=== PATIENT | female | born 1945 | race Hispanic/Latino ===

== ENCOUNTER → 2018-10-29 | Outpatient (CLI) | payer MEDICARE ==
[~2018-10-29] MED LIST: AMLO10TA7 PO; ASPI-555 PO; CANA300T PO; CEPH500C2 PO; CHLO25TA3 PO; ERGO500014 PO; GLIP5TAB11 PO; ISOS30TA6 PO; LIOT5TAB8 PO; LOSA100T58 PO; MAGN400C PO; METF-446 PO; PIOG30TA70 PO; RANO500T2 PO; ROSU10TA PO; SITA100T12 PO; SOLI5 PO
== END | disposition home or self-care (01) ==
LOC: RAH 09:47
PROVIDERS: ATTEND Family Medicine
DX: M17.0 Bilateral primary osteoarthritis of knee (principal); M25.462 Effusion, left knee; M25.461 Effusion, right knee
CPT/HCPCS: 73562

== ENCOUNTER 2018-11-26 08:22 | Emergency (ER) | payer MEDICARE ==
[~2018-11-26 08:22] MED LIST changes: -ROSU10TA PO; +ROSU10TA22 PO
[2018-11-26 09:29] LABS: CREATININE 0.6 mg/dL (0.5-1.5)
[2018-11-26] MEDS ORDERED: KETOROLAC TROMETHAMINE 15MG/ML ONE ×2 (09:43→10:23)
== END 2018-11-26 11:11 | disposition home or self-care (01) ==
LOC: EDH 08:22
DX: M19.90 Unspecified osteoarthritis, unspecified site (principal); I16.0 Hypertensive urgency; I10 Essential (primary) hypertension; E78.00 Pure hypercholesterolemia, unspecified; E11.9 Type 2 diabetes mellitus without complications; M81.0 Age-related osteoporosis without current pathological fracture; Z98.51 Tubal ligation status
CPT/HCPCS: 36415; 80048; 93971; 96372; 99284; J1885

== ENCOUNTER 2019-01-05 11:56 | Emergency (ER) | payer MEDICARE ==
[2019-01-05] MEDS ORDERED: MORPHINE SULFATE 4 MG/1ML SYG ONE (12:43)
== END 2019-01-05 14:32 | disposition home or self-care (01) ==
LOC: EDH 11:56
DX: S80.02XA Contusion of left knee, initial encounter (principal); S02.2XXA Fracture of nasal bones, initial encounter for closed fracture; S06.0X9A Concussion with loss of consciousness of unspecified duration, initial encounter; S63.501A Unspecified sprain of right wrist, initial encounter; S80.01XA Contusion of right knee, initial encounter; I10 Essential (primary) hypertension; E11.9 Type 2 diabetes mellitus without complications; E78.00 Pure hypercholesterolemia, unspecified; Z98.51 Tubal ligation status; Z91.041 Radiographic dye allergy status; W18.39XA Other fall on same level, initial encounter; Y93.89 Activity, other specified; Y92.89 Other specified places as the place of occurrence of the external cause; Y99.8 Other external cause status
CPT/HCPCS: 70450; 70486; 72125; 73110; 73562 ×2; 96372; 99284; J2270

== ENCOUNTER → 2019-04-11 | Outpatient (CLI) | payer MEDICARE ==
[~2019-04-11] MED LIST changes: -LIOT5TAB8 PO; +LIOT5TAB9 PO
== END | disposition home or self-care (01) ==
LOC: RAH 08:05
PROVIDERS: ATTEND Family Medicine
DX: Z12.31 Encounter for screening mammogram for malignant neoplasm of breast (principal)
CPT/HCPCS: 77067

== ENCOUNTER 2019-05-20 15:21 | Emergency (ER) | payer MEDICARE ==
[2019-05-20] MEDS ORDERED: KETOROLAC TROMETHAMINE 30MG/ML ONE (17:24)
== END 2019-05-20 18:09 | disposition home or self-care (01) ==
LOC: EDH 15:21
DX: M17.12 Unilateral primary osteoarthritis, left knee (principal); I10 Essential (primary) hypertension; E78.00 Pure hypercholesterolemia, unspecified; E11.9 Type 2 diabetes mellitus without complications; M81.0 Age-related osteoporosis without current pathological fracture; Z91.041 Radiographic dye allergy status
CPT/HCPCS: 96372; 99283; J1885

== ENCOUNTER → 2019-11-12 | Outpatient (CLI) | payer MEDICARE ==
[~2019-11-12] MED LIST changes: +LIOT5TAB11 PO; -LIOT5TAB9 PO
== END | disposition home or self-care (01) ==
LOC: RAH 08:29
PROVIDERS: ATTEND Family Medicine
DX: I65.23 Occlusion and stenosis of bilateral carotid arteries (principal)
CPT/HCPCS: 93880

== ENCOUNTER → 2020-03-23 | Outpatient (CLI) | payer MEDICARE ==
[~2020-03-23] MED LIST changes: -ASPI-555 PO; +ASPI-556 PO
== END | disposition home or self-care (01) ==
LOC: RAH 13:36
PROVIDERS: ATTEND Urology
DX: R31.29 Other microscopic hematuria (principal)
CPT/HCPCS: 76770

== ENCOUNTER → 2022-08-24 | Outpatient (CLI) | payer MEDICARE ==
[~2022-08-24] MED LIST changes: +AMLO-258 PO; -AMLO10TA7 PO; -ISOS30TA6 PO; +ISOS30TA92 PO
== END | disposition home or self-care (01) ==
LOC: RAH 14:26
PROVIDERS: ATTEND Family Medicine
DX: K57.30 Diverticulosis of large intestine without perforation or abscess without bleeding (principal); K76.89 Other specified diseases of liver
CPT/HCPCS: 74176

== ENCOUNTER → 2024-04-23 | Outpatient (CLI) | payer MEDICARE ==
[~2024-04-23] MED LIST changes: -GLIP5TAB11 PO; +GLIP5TAB15 PO; -LOSA100T58 PO; +LOSA100T59 PO
== END | disposition home or self-care (01) ==
LOC: SHCH 13:03
PROVIDERS: ATTEND Internal Medicine Cardiovascular Disease
DX: I70.293 Other atherosclerosis of native arteries of extremities, bilateral legs (principal); I87.2 Venous insufficiency (chronic) (peripheral); I87.1 Compression of vein; I20.0 Unstable angina
CPT/HCPCS: 93306; 93925; 93970

== ENCOUNTER → 2024-04-25 | Outpatient (CLI) | payer MEDICARE ==
[2024-04-25] MEDS: REGADENOSON 0.4 MG/5 ML PF SYG IVP ONE (13:55)
== END | disposition home or self-care (01) ==
LOC: SHCH 07:54
PROVIDERS: ATTEND Internal Medicine Cardiovascular Disease
DX: I99.8 Other disorder of circulatory system (principal); I20.0 Unstable angina
CPT/HCPCS: 78452; 93017; J2785; A9500 ×2

== ENCOUNTER → 2024-08-26 | Outpatient (CLI) | payer MEDICARE ==
[~2024-08-26] MED LIST changes: -AMLO-258 PO; -CANA300T PO; +CELE-146 PO; -CEPH500C2 PO; -CHLO25TA3 PO; +CLON0.1T PO; -ERGO500014 PO; +GABA-1405 PO; -GLIP5TAB15 PO; +ICOS1CAP PO; +INSU300I SQ; -ISOS30TA92 PO; -LIOT5TAB11 PO; -LOSA100T59 PO; +METO25TA6 PO; +PIOG15TA66 PO; -PIOG30TA70 PO; +ROPI0.5T37 PO; -ROSU10TA22 PO; +ROSU20TA98 PO; +SERT-439 PO; -SITA100T12 PO; -SOLI5 PO
--- NOTE | 2024-08-26 17:16 | HMCSR ---
APPROVED REPORT Bilateral Lower Extremity Venous Study for DVT., Venous Competence. Indications i87.1, i87.2 Vein Imaging CFV (R): Normal flow, augmentation and compression. No evidence of DVT. 11.0mm 717ms of reflux. SFJ (R): Normal flow, augmentation and compression. No evidence of DVT. FEM (R): Normal flow, augmentation and compression. No evidence of DVT. POP (R): Normal flow, augmentation and compression. No evidence of DVT. DFV (R): Normal flow, augmentation and compression. No evidence of DVT. PTV (R): Normal flow, augmentation and compression. No evidence of DVT. Peroneals (R): Normal flow, augmentation and compression. No evidence of DVT. CFV (L): Normal flow, augmentation and compression. No evidence of DVT. 10.9mm 394ms of reflux. SFJ (L): Normal flow, augmentation and compression. No evidence of DVT. FEM (L): Normal flow, augmentation and compression. No evidence of DVT. POP (L): Normal flow, augmentation and compression. No evidence of DVT. DFV (L): Normal flow, augmentation and compression. No evidence of DVT. PTV (L): Normal flow, augmentation and compression. No evidence of DVT. Peroneals (L): Normal flow, augmentation and compression. No evidence of DVT. Technologist Impression Deep veins of the bilateral lower extremities appear patent and compressible without thrombus. Superficial venous insufficiency noted in the RSSV, LGSV at thigh and LSSV. RGSV junction 6.4mm 289ms thigh 3.7mm 0.0ms knee 3.5mm 0.0ms calf 2.6mm 333ms RSSV prox 1.8mm 811ms mid 1.9mm 0.0ms LGSV junciton 6.6mm 0.0ms thigh 2.9mm 894ms knee 2.6mm 0.0ms calf 2.5mm 0.0ms LSSV prox 3.1mm 583ms mid 3.0mm 1961ms Conclusion Superficial venous insufficiency noted in the RSSV, LGSV at thigh and LSSV. Conclusion Superficial venous insufficiency noted in the RSSV, LGSV at thigh and LSSV.
== END | disposition home or self-care (01) ==
LOC: SHCH 08:59
PROVIDERS: ATTEND Internal Medicine Cardiovascular Disease
DX: I87.2 Venous insufficiency (chronic) (peripheral) (principal); I87.1 Compression of vein
CPT/HCPCS: 93970

== ENCOUNTER → 2025-04-16 | Outpatient (CLI) | payer MEDICARE, MEDICAID ==
[~2025-04-16] MED LIST changes: +IOHEXOL-350 75 ML VIAL IV ONE
--- NOTE | 2025-04-16 13:02 | HMCIMG ---
CT ABDOMEN/PELVIS W/WO INTRAVENOUS CONTRAST AND ORAL CONTRAST. REASON: RT LOWER QUADRANT PAIN;FEVER COMPARISON: None. FINDINGS: Lung bases are clear. There are no focal liver lesions. There are multiple cysts seen in the right lobe liver the largest in the dome measuring approximately 7.9 x 6.6 cm. There are other small satellite lesion seen. There is calcification seen in the right lobe of the liver near the dome of the diaphragm. There are normal-appearing kidneys.. Spleen and pancreas appear unremarkable. The gallbladder appears normal as well. Bowel loops appear unremarkable. The bowels are well-opacified with oral contrast. The appendix is not visualized. There is no evidence of any fat stranding or inflammation seen in the right lower quadrant. There is no evidence of free fluid or intraperitoneal air. There are no focal fluid collections. Aorta and retroperitoneum appear normal as do pelvic soft tissue structures. The anterior abdominal wall is intact. Osseous structures demonstrate mild osteopenia. There is mild grade 1 compression fracture of the inferior endplate of L1 vertebral body.. The uterus is deviating to the right side with calcification. IMPRESSION: 1. No acute process seen a CT of the abdomen and pelvis with and without intravenous contrast and oral contrast 2. Multiple cysts in the liver the largest as described above 3. Grade 1 compression fracture of this inferior endplate of L1 which is amenable for vertebral body augmentation the patient is having pain symptom. CT was performed with one or more following dose reduction techniques: automated exposure control, adjustment of the mA and kv according to patient's size, or use of a iterative reconstruction technique.
== END | disposition home or self-care (01) ==
LOC: RAH 09:43
PROVIDERS: ATTEND Student in an Organized Health Care Education/Training Program
DX: M48.56XA Collapsed vertebra, not elsewhere classified, lumbar region, initial encounter for fracture (principal); K76.89 Other specified diseases of liver; M85.88 Other specified disorders of bone density and structure, other site; N85.4 Malposition of uterus; R10.31 Right lower quadrant pain; R50.9 Fever, unspecified
CPT/HCPCS: 74178; J2919; J1200; Q9967

== ENCOUNTER → 2025-07-29 | Outpatient (CLI) | payer MEDICARE ==
[~2025-07-29] MED LIST changes: +GADOTERATE MEGLUMINE 10 MMOL/20 ML VIAL IV ONE; -IOHEXOL-350 75 ML VIAL IV ONE
--- NOTE | 2025-07-29 17:02 | HMCIMG ---
EXAM: MR CERVICAL SPINE WITH AND WITHOUT IV CONTRAST CLINICAL HISTORY: Radiculopathy, cervical region. TECHNIQUE: Multiplanar and multisequence MR images of the cervical spine were obtained before and after IV contrast administration. CONTRAST: With and Without Intravenous Contrast. COMPARISON: None. FINDINGS: VERTEBRAE: Normal vertebral bodies and posterior elements. There is no evidence of fracture. There are anterior and posterior marginal osteophytes, seen at multiple levels. There is diffuse disc desiccative changes at all levels with reduction of the disc height at C6-C7 level. VERTEBRAL ALIGNMENT: Normal, including the craniocervical junction and cervicothoracic junction. No spondylolisthesis. There is increased cervical lordosis. There is slight retrolisthesis of C4 over C5 and C5 over C6 levels. C2/3: Normal disc height and morphology. Mild bilateral facet arthropathy is present. No significant neural foraminal narrowing or nerve root impingement. C3/4: Moderate to severe uncovertebral and facet joints arthropathy is present, left greater than right with narrowing of the neural foramina and bilateral exiting C4 nerve roots compression. C4/5: C4-C5 level demonstrates a central small disc protrusion indenting thecal sac. There is mild to moderate severity bilateral uncovertebral and facet joints arthropathy causing minimal narrowing of the neural foramina bilaterally with indentation upon the exiting nerve roots. C5/6: C5-C6 level demonstrates a moderate sized circumferential bulge of the disc causing thecal sac indentation, slight cord compression, compounded by ligamentum flavum thickening and facet arthropathy with narrowing of the neural foramina and exiting nerve roots compression bilaterally, right greater than left. C6/7: C6-C7 level demonstrates an asymmetric extrusion of the disc, right paracentral location greater than the left with slight cord indentation at this level, narrowing of the right neural foramen and exiting C7 nerve root compression. CORD: The cervical cord demonstrates normal signal intensity. CONTRAST: The post-contrast sequences demonstrate enhancement of the cervical cord and the meninges. NECK SOFT TISSUES: The visualized posterior cranial fossa structures are unremarkable. There is no paraspinal muscle edema. The supraspinous and interspinous ligaments show no evidence of sprain. IMPRESSION: 1. Cervical spondylosis with multilevel degenerative disc, facet and uncovertebral arthropathy. 2. Asymmetric disc extrusion at C6-C7, right paracentral greater than left, with slight cord indentation, right exiting right C7 nerve root compression. 3. Moderate-sized circumferential disc bulge at C5-C6 with thecal sac indentation and slight cord compression, compounded by ligamentum flavum thickening and facet arthropathy, with bilateral neural foraminal narrowing and exiting nerve root compression, right greater than left. 4. Moderate to severe uncovertebral and facet arthropathy at C3-C4, left greater than right, with neural foraminal narrowing and bilateral exiting C4 nerve root compression. 5. Mild to moderate bilateral uncovertebral and facet arthropathy at C4-C5 with minimal bilateral neural foraminal narrowing and indentation upon the exiting nerve roots. 6. No cord edema, myelomalacia. 7. No abnormal post-contrast enhancement of the cervical cord, the meninges. /[place]
== END | disposition home or self-care (01) ==
LOC: RAH 08:40
PROVIDERS: ATTEND Physician Assistant
DX: M47.22 Other spondylosis with radiculopathy, cervical region (principal); M50.123 Cervical disc disorder at C6-C7 level with radiculopathy; M50.122 Cervical disc disorder at C5-C6 level with radiculopathy; M48.02 Spinal stenosis, cervical region; M50.121 Cervical disc disorder at C4-C5 level with radiculopathy; M25.78 Osteophyte, vertebrae
CPT/HCPCS: 72156; A9575